=== PATIENT | male | born 1995 | race Caucasian/White ===

== ENCOUNTER 2021-10-19 11:28 | Emergency (ER) | payer OTHER ==
[2021-10-19] MEDS ORDERED: Ibuprofen 600 MG Tab PO ONE (11:31)
[2021-10-19] MEDS ORDERED: Acetaminophen 500 MG Tab PO ONE (11:31)
[2021-10-19] MEDS ORDERED: Cyclobenzaprine 10 MG Tab PO ONE (11:32)
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
--- NOTE | 2021-10-19 12:30 | CR ---
Indication: Trauma. Technique: Left shoulder 2 views. Comparison: None. Findings: Bones: Alignment is normal. No fractures or bone lesions. Joint spaces: Unremarkable. Soft tissues: Unremarkable. Impression: No sign of acute injury. Dictated by Manoj De Leon MD @ 10/19/2021 12:28:06 PM (Electronically Signed)
== END 2021-10-19 12:50 | disposition home or self-care (01) ==
LOC: MW.ED 11:28
DX: M25.512 Pain in left shoulder (principal)
CPT/HCPCS: 73030; 99284; A9270